=== PATIENT | male | born 1945 | race Caucasian/White ===

== ENCOUNTER 2021-07-21 17:32 | Inpatient (IN) ==
[2021-07-21] MEDS ORDERED: ONDANSETRON 4 MG/2 ML VIAL IV STA (18:02)
[2021-07-21] MEDS ORDERED: MORPHINE 10 MG/1 ML VIAL IV STA (18:02)
[2021-07-21] MEDS ORDERED: MORPHINE 4 MG/1 ML VIAL IV STA (18:05)
[2021-07-21 18:11] LABS: Basophils % 0.2 % (0.0-0.8); Eosinophils # 0.1 10*3/uL (0.0-0.87); Eosinophils % 1.2 % (0.00-10.9); Hematocrit 46.1 VOL% (42.0-52.0); Hemoglobin 15.3 GM/DL (14.0-18.0); Immature Granulocytes % 0.4 %; Immature Granulocytes Absolute 0.04 #; Lymphocytes # 1.8 10*3/uL (1.4-4.0); Lymphocytes % 18.7 % (21.2-54.2); Mean Corpuscular HGB Conc 33.2 GM/DL (32-36); Mean Corpuscular Volume 94.5 FL (87-102); Mean Platelet Volume 9.9 FL (9.6-12.0); Monocytes % 8.8 % (1.7-12.7); Neutrophils % 70.7 % (38.7-73.9); Platelet Count 181 T/CUMM (130-400); Red Blood Count 4.88 MC/CUMM (3.8-5.5); Red Cell Distribution Width 12.8 % (9.3-17.3); White Blood Count 9.4 T/CUMM (4-12)
[2021-07-21 18:47] LABS: Albumin 3.9 G/DL (3.4-5.0); Bilirubin,Total 0.9 MG/DL (0.20-1.00); Calcium 8.7 MG/DL (8.5-10.1); Osmolality,Calculated 284.1 MOS/KG (273-304); Potassium 4.3 MMOL/L (3.5-5.1); Total Protein 6.7 G/DL (6.4-8.2)
[2021-07-21] MEDS ORDERED: ENOXAPARIN 100 MG/ML SYRINGE SUBCUT STA (19:07)
[2021-07-21] MEDS ORDERED: ASPIRIN CHEW 81 MG TABLET PO STA (19:07)
[2021-07-21] MEDS ORDERED: GLUCAGON 1 MG VIAL IM PRN ×2 (19:49→20:46)
[2021-07-21] MEDS ORDERED: ACETAMINOPHEN 325 MG TABLET PO PRN (19:49)
[2021-07-21] MEDS ORDERED: BISACODYL 5 MG TABLET PO PRN (19:49)
[2021-07-21] MEDS ORDERED: ZALEPLON 5 MG CAPSULE PO PRN (19:49)
[2021-07-21] MEDS ORDERED: MORPHINE 4 MG/1 ML VIAL IV PRN (20:01)
[2021-07-21] MEDS ORDERED: DEXTROSE 10% 250 ML BAG IV PRN (20:02)
[2021-07-21] MEDS ORDERED: DEXTROSE 50% 25 GM/50 ML VIAL IV PRN (20:46)
[2021-07-21] MEDS: SODIUM CHLORIDE 0.9% 1,000 ML IV SCH (22:02)
[2021-07-21] MEDS: INSULIN REGULAR 100 UNIT/ML SUBCUT SCH (22:30)
[2021-07-22 01:02] LABS: Basophils % 0.2 % (0.0-0.8); Eosinophils # 0.1 10*3/uL (0.0-0.87); Eosinophils % 1.2 % (0.00-10.9); Hematocrit 47.1 VOL% (42.0-52.0); Hemoglobin 15.4 GM/DL (14.0-18.0); Immature Granulocytes % 0.2 %; Immature Granulocytes Absolute 0.01 #; Lymphocytes # 1.8 10*3/uL (1.4-4.0); Lymphocytes % 26.8 % (21.2-54.2); Mean Corpuscular HGB Conc 32.7 GM/DL (32-36); Mean Platelet Volume 9.9 FL (9.6-12.0); Monocytes % 9.8 % (1.7-12.7); Neutrophils % 61.8 % (38.7-73.9); Platelet Count 171 T/CUMM (130-400); Red Blood Count 5.01 MC/CUMM (3.8-5.5); Red Cell Distribution Width 12.8 % (9.3-17.3); White Blood Count 6.5 T/CUMM (4-12)
[2021-07-22 01:08] LABS: INR 1.2; PT Patient Result 12.7 SECS (10.5-12.0); Partial Thromboplastin Time 37.5 SECS (23.8-32.1)
[2021-07-22 01:33] LABS: Calcium 8.8 MG/DL (8.5-10.1); Osmolality,Calculated 279.5 MOS/KG (273-304); Potassium 4.1 MMOL/L (3.5-5.1); Risk Ratio 2.66; VLDL Cholesterol 42.6 MG/DL
[2021-07-22] MEDS: SODIUM CHLORIDE 0.9% 1,000 ML IV SCH (05:48)
[2021-07-22] MEDS ORDERED: HydrOXYzine PAMOATE 25 MG CAPSULE PO PRN (08:02)
[2021-07-22] MEDS: PANTOPRAZOLE 40 MG TABLET PO SCH (09:04)
[2021-07-22] MEDS: TAMSULOSIN 0.4 MG CAPSULE PO SCH (09:04)
[2021-07-22] MEDS: DULoxetine 30 MG CAPSULE PO SCH ×2 (09:04→21:39)
[2021-07-22] MEDS: carvediloL 3.125 MG TABLET PO SCH ×2 (09:04→21:39)
[2021-07-22] MEDS: INSULIN REGULAR 100 UNIT/ML SUBCUT SCH ×3 (11:08→19:01)
[2021-07-22] MEDS ORDERED: DIGOXIN 0.25 MG TABLET PO SCH (13:00)
[2021-07-22] MEDS: RIVAROXABAN 20 MG TABLET PO SCH (13:08)
[2021-07-22] MEDS ORDERED: ENOXAPARIN 40 MG/0.4 ML SYRINGE SUBCUT SCH (20:00)
[2021-07-22] MEDS: DILTIAZEM CD 120 MG CAPSULE PO SCH (21:40)
[2021-07-23 01:57] LABS: RBC,Urine 2 /HPF (0-4)
[2021-07-23 02:00] LABS: Urine Appearance Clear (Clear); Urine Color Yellow (Yellow)
[2021-07-23 02:01] LABS: Bilirubin,Urine Negative (Negative); Blood, Urine Trace mg/dL (Negative); Glucose,Urine (UA) 500 mg/dL (Negative); Ketones,Urine Negative (Negative); Nitrite,Urine Negative (Negative); Protein,Urine Negative (Negative); Urine Specific Gravity 1.025 (1.001-1.035)
[2021-07-23 05:05] LABS: Basophils % 0.2 % (0.0-0.8); Eosinophils # 0.1 10*3/uL (0.0-0.87); Eosinophils % 1.8 % (0.00-10.9); Hemoglobin 15.1 GM/DL (14.0-18.0); Immature Granulocytes % 0.6 %; Immature Granulocytes Absolute 0.03 #; Lymphocytes # 1.1 10*3/uL (1.4-4.0); Lymphocytes % 21.8 % (21.2-54.2); Mean Corpuscular HGB Conc 32.1 GM/DL (32-36); Mean Corpuscular Volume 95.9 FL (87-102); Mean Platelet Volume 9.8 FL (9.6-12.0); Monocytes % 8.9 % (1.7-12.7); Neutrophils % 66.7 % (38.7-73.9); Platelet Count 141 T/CUMM (130-400); Red Cell Distribution Width 12.5 % (9.3-17.3); White Blood Count 5.1 T/CUMM (4-12)
[2021-07-23 05:18] LABS: Calcium 8.8 MG/DL (8.5-10.1); Osmolality,Calculated 276.7 MOS/KG (273-304); Potassium 5.1 MMOL/L (3.5-5.1)
[2021-07-23 05:23] LABS: Albumin 3.6 G/DL (3.4-5.0); Bilirubin,Total 1.1 MG/DL (0.20-1.00); Calcium 8.7 MG/DL (8.5-10.1); Osmolality,Calculated 278.5 MOS/KG (273-304); Total Protein 6.8 G/DL (6.4-8.2)
[2021-07-23] MEDS ORDERED: ASPIRIN EC 81 MG TABLET PO SCH (09:00)
[2021-07-23] MEDS ORDERED: REGADENOSON 0.4 MG/5 ML SYRINGE IV ONE (09:19)
[2021-07-23] MEDS: INSULIN REGULAR 100 UNIT/ML SUBCUT SCH (09:30)
[2021-07-23] MEDS: DULoxetine 30 MG CAPSULE PO SCH (10:47)
[2021-07-23] MEDS: TAMSULOSIN 0.4 MG CAPSULE PO SCH (10:49)
[2021-07-23] MEDS: DILTIAZEM CD 120 MG CAPSULE PO SCH (10:49)
[2021-07-23] MEDS: carvediloL 3.125 MG TABLET PO SCH (10:50)
[2021-07-23] MEDS: PANTOPRAZOLE 40 MG TABLET PO SCH (10:50)
[2021-07-23] MEDS: RIVAROXABAN 20 MG TABLET PO SCH (10:50)
[2021-07-23 10:51] VITALS: BP 139/79
== END 2021-07-23 12:44 | disposition home or self-care (01) | DRG 313 ==
LOC: N.ED 17:32 → N.TELEN 19:49
PROVIDERS: ADMIT Internal Medicine; ATTEND Internal Medicine